=== PATIENT | female | born 1955 | race Caucasian/White ===

== ENCOUNTER 2023-08-21 18:54 | Emergency (ER) | payer BC, OTHER ==
[2023-08-21 20:06] VITALS: BP 138/75; PULSE 72; RESP 18; TEMP 98; BMI 26.5
[2023-08-21] MEDS ORDERED: DOXYCYCLINE HYCLATE 100 MG CAPSULE PO ONE (20:08)
[2023-08-21] MEDS: DOXYCYCLINE HYCLATE 100 MG CAPSULE PO ONE (20:12)
== END 2023-08-21 20:20 | disposition home or self-care (01) ==
LOC: FER 18:54
PROC: 0HQ3XZZ Repair Left Ear Skin, External Approach (ICD-10-PCS; principal; 2023-08-21)
DX: S01.312A Laceration without foreign body of left ear, initial encounter (principal); W54.0XXA Bitten by dog, initial encounter
CPT/HCPCS: 12011-25; 99283-25

== ENCOUNTER 2023-08-28 09:48 | Emergency (ER) | payer OTHER ==
[2023-08-28 09:55] VITALS: BP 138/77; PULSE 77; RESP 18; TEMP 98; BMI 26.5
== END 2023-08-28 10:25 | disposition home or self-care (01) ==
LOC: FER 09:48
DX: Z48.02 Encounter for removal of sutures (principal)
CPT/HCPCS: 99281-25